=== PATIENT | male | born 1945 | race Caucasian/White ===

== ENCOUNTER → 2018-04-18 | Outpatient (CLI) | payer MEDICARE, OTHER ==
[~2018-04-18] MED LIST: CRESTOR PO; FLOMAX0.4 MG PO; IOPAMIDOL 370 MG/ML 200 ML INFUS..BTL INJ ONE; SODIUM CHLORIDE 0.9% 100 ML 100 ML ONE; SYNTHROID125 MCG PO
[2018-04-18 10:49] LABS: BLOOD UREA NITROGEN 17 mg/dL (7-26); BUN/CREATININE RATIO 15 (6-25); CREATININE, SERUM 1.16 mg/dL (0.72-1.25); EST GLOMERULAR FILTRATION RATE > 60 ML/MIN (60-)
--- NOTE | 2018-04-18 12:43 | Diagnostic Imaging Report ---
Examination: Cervical CT Angiogram with Contrast Clinical indication:Carotid stenosis. Comparison studies:None Technique: Axial images were obtained from the thoracic inlet. Coronal and sagittal images reconstructed from the axial data. Intravenous contrast: 100 cc of Isovue 370. Computer generated maximum intensity projection and 3D images were performed of the bilateral carotid bifurcations and the aortic arch with bilateral common carotid and cervical internal carotid arteries on a separate workstation. Degree of stenosis at the carotid bulbs, if present, will be calculated using NASCET criteria where the smallest diameter at the location of stenosis is compared to the diameter of the more distal non-diseased vessel lumen. Dose modulation, iterative reconstruction, and/or weight based adjustment of the mA/kV was utilized to reduce the radiation dose to as low as reasonably achievable. Findings: Aortic arch and major vessels: Patent. Nonstenotic atherosclerotic calcification. Common carotid arteries: Calcific plaque is demonstrated medially of the distal right common carotid artery and extending to the right carotid bifurcation. There is circumferential soft plaque of the mid and distal left common carotid artery for a length of 2 cm. Severe stenosis of the carotid bifurcation and proximal left cervical internal carotid artery, as detailed below. Cervical carotid bifurcations: Right: Patent despite nonstenotic calcific plaque. Left :Severe stenosis (greater than 70%) due to soft plaque for a length of 6 mm. Internal carotid arteries: Right: Patent. Nonstenotic calcific plaque at the proximal cervical segment. Left: Severe stenosis (90%) due to soft plaque for a length of 1.3 cm. Vertebral arteries: Patent. Nonstenotic calcific plaque of the intradural/V4 segments. IMPRESSION: 1. Severe stenosis of the left carotid bifurcation and proximal left cervical internal carotid arteries (greater than 70% and 90%, respectively) due to soft plaque, as described above. 2. Nonstenotic calcific plaque of the aortic arch, right carotid bifurcation, proximal cervical right internal carotid artery and intradural/V4 segments of the bilateral vertebral arteries. Signed by: Dr. Marcela Zarate M.D. on 04/18/2018 12:40 PM
== END ==
LOC: CT 09:54
PROVIDERS: ATTEND Internal Medicine
DX: I65.22 Occlusion and stenosis of left carotid artery (principal); I65.21 Occlusion and stenosis of right carotid artery
CPT/HCPCS: 36415; 70498; 82565; 84520; Q9967